=== PATIENT | female | born 1950 | race Caucasian/White ===

== ENCOUNTER 2025-06-24 07:33 | Outpatient (CLI) | payer MEDICARE, MEDICAID, SELFPAY ==
[2025-06-24 07:47] LABS: Albumin Level 3.3 g/dl (3.5-5.0); Chloride 109 mmol/L (98-107); Potassium 4.5 mmoL/L (3.5-5.1); Sodium 138 mmol/L (136-145)
[2025-06-24 07:49] LABS: Hematocrit 31.4 % (37.0-47.0); Hemoglobin 9.9 g/dL (12.2-16.2); Immature Granulocytes % 0.3 %; Mean Corpuscular HGB Conc 31.5 g/dL (31.8-35.4); Mean Corpuscular Hemoglobin 28.7 pg (27.0-31.2); Mean Corpuscular Volume 91.0 fl (81-99); Nucleated Red Blood Cells % 0 %; Platelet Count 403 K/mm3 (142-424); Red Blood Count 3.45 M/mm3 (4.20-5.40); Red Cell Distribution Width-SD 51.8 fL; White Blood Count 8.9 K/mm3 (4.8-10.8)
[2025-06-24 07:50] LABS: Alanine Aminotransferase 11 U/L (12-78); Albumin/Globulin Ratio 1.1 (1.1-1.8); Alkaline Phosphatase 103 U/L (38-126); Anion Gap 9.5 mEq/L (5-15); Aspartate Amino Transferase 23 U/L (14-36); Bilirubin,Total 0.3 mg/dl (0.2-1.3); Blood Urea Nitrogen 18 mg/dl (7-17); Carbon Dioxide 24 mmol/L (22.0-30.0); Cholesterol 103 mg/dl (140-200); Creatinine,Serum 0.70 mg/dl (0.52-1.04); Estimated Glomerular Filt Rate 82 ml/min (>60); GFR (African American) 99 ML/MIN (>60); Globulin 2.9 g/dL (1.3-3.2); Iron 49 ug/dL (37-170); Total Protein,Serum 6.2 g/dl (6.3-8.2); Triglycerides 161 mg/dl (30-150)
[2025-06-24 07:51] LABS: Calcium 9.0 mg/dl (8.4-10.2); Glucose 101 mg/dl (74-100); HDL Cholesterol 37 mg/dl (40-60)
[2025-06-24 08:00] LABS: Total Iron Binding Capacity 243 ug/dL (265-497)
[2025-06-24 08:07] LABS: Free T4 (Free Thyroxine) 1.82 ng/dl (0.78-2.19)
[2025-06-24 08:09] LABS: Hemoglobin A1C 5.3 % (4.0-6.0)
[2025-06-24 08:21] LABS: Thyroid Stimulating Hormone 0.35 uIU/mL (0.465-4.68)
[2025-06-24 08:25] LABS: Ferritin 88.1 ng/ml (11.1-264)
== END 2025-06-24 23:59 | disposition home or self-care (01) ==
PROVIDERS: PCP Family Medicine; Visit Provider Family Medicine
DX: E11.9 Type 2 diabetes mellitus without complications (principal); E03.9 Hypothyroidism, unspecified; D64.9 Anemia, unspecified
CPT/HCPCS: 36415; 80053; 80061; 82728; 83036; 83540; 83550; 84439; 84443; 85025